=== PATIENT | male | born 1995 | race Caucasian/White ===

== ENCOUNTER 2017-06-15 03:39 | Emergency (ER) | payer BC, OTHER ==
[~2017-06-15] VITALS: Ht 195.6 cm; Wt 147.8 kg
[~2017-06-15 03:39] MED LIST: DICL75 PO; MAXA5TAB2 PO; PROP10TA6 PO
[2017-06-15 03:47] VITALS: BP 218/130; PULSE 74; RESP 18; TEMP 97.7; O2SAT 100
[2017-06-15 04:04] LABS: BILIRUBIN, URINE NEG (NEG); BLOOD, URINE MOD (NEG); GLUCOSE,URINE NEG (NEG); KETONE, URINE NEG (NEG); NITRITE,URINE NEG (NEG); URINE LEUKOCYTE ESTERASE NEG (NEG)
[2017-06-15 04:11] LABS: SQUAMOUS EPITHELIAL CELL URINE 0-5 /hpf (0-5); URINE COLOR YELLOW (YELLW/STRAW); WBC, URINE 0-2 /hpf (0-5)
[2017-06-15] MEDS ORDERED: SODIUM CHLOR 0.9% 1000 ML INJ 1,000 ML IV SCH (04:19)
[2017-06-15] MEDS ORDERED: SODIUM CHLORIDE 0.9% FLUSH 10 ML FLUSH IV FLUSH PRN (04:30)
[2017-06-15] MEDS ORDERED: KETOROLAC TROMETHAMINE 30 MG/ML (IVP) VIAL IVP ONE (04:30)
[2017-06-15 04:42] VITALS: O2SAT 98
[2017-06-15 04:44] LABS: AUTOMATED NEUTROPHIL # 7.5 TH/MM3 (1.8-7.7); BASOPHIL # 0.1 TH/MM3 (0-0.2); BASOPHIL % 1.1 % (0.0-2.0); EOSINOPHIL # 0.1 TH/MM3 (0-0.4); EOSINOPHIL % 1.3 % (0.0-4.0); HEMOGLOBIN 13.5 GM/DL (13.0-17.0); LYMPH % 19.1 % (9.0-44.0); MEAN CELL VOLUME 85.4 FL (80.0-100.0); MEAN CORPUSCULAR HEMOGLOBIN 28.1 PG (27.0-34.0); MEAN CORPUSCULAR HGB CONC 32.9 % (32.0-36.0); MEAN PLATELET VOLUME 8.3 FL (7.0-11.0); MONO % 7.4 % (0.0-8.0); MONOCYTE # 0.8 TH/MM3 (0-0.9); NEUT % 71.1 % (16.0-70.0); PLATELET COUNT 257 TH/MM3 (150-450); RED CELL DISTRIBUTION WIDTH 12.6 % (11.6-17.2); WHITE BLOOD COUNT 10.5 TH/MM3 (4.0-11.0)
--- NOTE | 2017-06-15 04:51 | PD ---
HPI Chief Complaint: Complaint Time Seen by Provider: 04:06 Travel History International Travel<30 days: No Contact w/Intl Traveler<30days: No Traveled to known affect area: No History of Present Illness HPI Patient is a 21-year-old male presents emergency department for evaluation of dysuria and right flank pain. Patient states they were in [place] today at the scene part and after today the scene part decided to drive home and try to hold his urine on his way home. He states when he got home he started having some pain as well as right flank pain. States never had symptoms like this before. He states he got to the point where was making him nauseous and vomit. No history of kidney stones, no fevers, has not tried anything prior to arrival. Denies any chest pain shortness breath dysuria, blood in the urine, diarrhea, constipation. States symptoms are severe, context as above, associated signs symptoms as above, right flank radiating down to the groin. PFSH Past Medical History Medical History: Denies Significant Hx Diminished Hearing: No Tetanus Vaccination: > 5 Years Influenza Vaccination: No Past Surgical History Surgical History: No Previous Surgery Social History Alcohol Use: No Tobacco Use: No Substance Use: No Allergies-Medications (Allergen,Severity, Reaction): Coded Allergies: penicillin G (Verified Allergy, Severe, 06/15/17) Reported Meds & Prescriptions Reported Meds & Active Scripts Active Ibuprofen 600 Mg Tab 600 Mg PO Q6H PRN Zofran (Ondansetron HCl) 4 Mg Tab 4 Mg PO Q6HR PRN [place] (Hydrocodone-Acetaminophen) 5 Mg-325 Mg Tab 1 Tab PO Q6H PRN Flomax (Tamsulosin HCl) 0.4 Mg Cap 0.4 Mg PO HS Review of Systems Except as stated in HPI: all other systems reviewed are Neg Physical Exam Narrative GENERAL: Well-developed well-nourished, no obvious distress. SKIN: Focused skin assessment warm/dry. HEAD: Atraumatic. Normocephalic. EYES: Pupils equal and round. No scleral icterus. No injection or drainage. ENT: No nasal bleeding or discharge. Mucous membranes pink and moist. NECK: Trachea midline. No JVD. CARDIOVASCULAR: Regular rate and rhythm. No murmur appreciated. RESPIRATORY: No accessory muscle use. Clear to auscultation. Breath sounds equal bilaterally. GASTROINTESTINAL: Abdomen soft, non-tender, nondistended. Hepatic and splenic margins not palpable. Mild CVA tenderness on the right, otherwise abdomen is benign. MUSCULOSKELETAL: No obvious deformities. No clubbing. No cyanosis. No edema. NEUROLOGICAL: Awake and alert. No obvious cranial nerve deficits. Motor grossly within normal limits. Normal speech. PSYCHIATRIC: Appropriate mood and affect; insight and judgment normal. Data Data Last Documented VS Vital Signs Date Time Temp Pulse Resp B/P (MAP) Pulse Ox O2 Delivery O2 Flow Rate FiO2 06/15/17 06:49 98.2 98 180/100 (126) 100 06/15/17 03:47 18 Orders Orders Urinalysis - C+S If Indicated (06/15/17 03:46) Complete Blood Count With Diff (06/15/17 04:19) Comprehensive Metabolic Panel (06/15/17 04:19) Lipase (06/15/17 04:19) Iv Access Insert/Monitor (06/15/17 04:19) Ecg Monitoring (06/15/17 04:19) Oximetry (06/15/17 04:19) Sodium Chlor 0.9% 1000 Ml Inj (Ns 1000 M (06/15/17 04:19) Sodium Chloride 0.9% Flush (Ns Flush) (06/15/17 04:30) Ketorolac Inj (Toradol Inj) (06/15/17 04:30) Ct Abd/Pel W/O Iv Contrast (06/15/17 ) Ed Discharge Order (06/15/17 06:35) Labs Laboratory Tests Test 06/15/17 03:30 06/15/17 04:30 Urine Color YELLOW Urine Turbidity CLEAR Urine pH 6.0 Urine Specific [place] 1.025 Urine Protein NEG mg/dL Urine Glucose (UA) NEG mg/dL Urine Ketones NEG mg/dL Urine Occult Blood MOD Urine Nitrite NEG Urine Bilirubin NEG Urine Leukocyte Esterase NEG Urine RBC 20-24 /hpf Urine WBC 0-2 /hpf Urine Squamous Epithelial Cells 0-5 /hpf Urine Bacteria NONE /hpf Microscopic Urinalysis Comment CULT NOT INDICATED White Blood Count 10.5 TH/MM3 Red Blood Count 4.80 MIL/MM3 Hemoglobin 13.5 GM/DL Hematocrit 41.0 % Mean Corpuscular Volume 85.4 FL Mean Corpuscular Hemoglobin 28.1 PG Mean Corpuscular Hemoglobin Concent 32.9 % Red Cell Distribution Width 12.6 % Platelet Count 257 TH/MM3 Mean Platelet Volume 8.3 FL Neutrophils (%) (Auto) 71.1 % Lymphocytes (%) (Auto) 19.1 % Monocytes (%) (Auto) 7.4 % Eosinophils (%) (Auto) 1.3 % Basophils (%) (Auto) 1.1 % Neutrophils # (Auto) 7.5 TH/MM3 Lymphocytes # (Auto) 2.0 TH/MM3 Monocytes # (Auto) 0.8 TH/MM3 Eosinophils # (Auto) 0.1 TH/MM3 Basophils # (Auto) 0.1 TH/MM3 CBC Comment DIFF FINAL Differential Comment Blood Urea Nitrogen 14 MG/DL Creatinine 1.00 MG/DL Random Glucose 157 MG/DL Total Protein 8.0 GM/DL Albumin 3.8 GM/DL Calcium Level 8.7 MG/DL Alkaline Phosphatase 75 U/L Aspartate Amino Transf (AST/SGOT) 14 U/L Alanine Aminotransferase (ALT/SGPT) 39 U/L Total Bilirubin 0.2 MG/DL Sodium Level 141 MEQ/L Potassium Level 4.2 MEQ/L Chloride Level 107 MEQ/L Carbon Dioxide Level 26.9 MEQ/L Anion Gap 7 MEQ/L Estimat Glomerular Filtration Rate 93 ML/MIN Lipase 149 U/L MDM Medical Decision Making Medical Screen Exam Complete: Yes Emergency Medical Condition: Yes Differential Diagnosis UTI, pyelonephritis, kidney stone, urinary tract infection, bladder spasms. Narrative Course Patient roomed emergency department, appears well, hypertensive and discussed need follow-up with primary care physician regarding this in the future to prevent strokes and heart attacks. Patient verbalizes agreement. Fairly classic for nephrolithiasis, discussed the patient could consider trial of passage without Scanning, he still is unsure diagnosis would like to have CAT scan anyways, discussion of radiation risks that he is willing to accept them. CAT scan does show the following results: Last 24 hours Impressions Abdomen/Pelvis CT 06/15/17 0000 Signed Impressions: Service Date/Time: Thursday, June 15, 2017 05:36 - CONCLUSION: 1. There is a 3 mm stone at the right UVJ causing hydronephrosis to the right collecting system. 2. Diffuse fatty infiltration of the liver. Herbert Medina MD Discussed symptomatic management returned ED criteria follow-up with urologist. He is stable for discharge. Diagnosis Primary Impression: Renal colic on right side Additional Impressions: Nephrolithiasis Fatty liver Referrals: Nguyễn Correa MD Additional Instructions: The liver is showing some signs of damage, recommending weight loss and avoidance of alcohol follow-up with her primary care physician. Follow-up with Dr. Correa the urologist. Med/Other Pt SpecificInfo: Prescription(s) given Scripts Ibuprofen (Ibuprofen) 600 Mg Tab 600 MG PO Q6H Y for Pain/Inflammation, #20 TAB 0 Refills Prov: Petros Dupree MD 06/15/17 Ondansetron (Zofran) 4 Mg Tab 4 MG PO Q6HR Y for NAUSEA OR VOMITING, #20 TAB 0 Refills Prov: Petros Dupree MD 06/15/17 Hydrocodone-Acetaminophen ([place]) 5 Mg-325 Mg Tab 1 TAB PO Q6H Y for PAIN, #10 TAB 0 Refills Prov: Petros Dupree MD 06/15/17 Tamsulosin (Flomax) 0.4 Mg Cap 0.4 MG PO HS for Manage Prostate Problems, #30 CAP 0 Refills Prov: Petros Dupree MD 06/15/17 Disposition: 01 DISCHARGE HOME Condition: Stable Petros Dupree MD Jun 15, 2017 04:51
[2017-06-15 04:52] LABS: CHLORIDE 107 MEQ/L (98-107); SODIUM (NA) 141 MEQ/L (136-145)
[2017-06-15 04:57] LABS: ALBUMIN 3.8 GM/DL (3.4-5.0); BICARBONATE 26.9 MEQ/L (21.0-32.0); BLOOD UREA NITROGEN 14 MG/DL (7-18); CALCIUM 8.7 MG/DL (8.5-10.1); GLUCOSE,RANDOM 157 MG/DL (74-106); LIPASE 149 U/L (73-393)
[2017-06-15 05:00] LABS: ALT (GPT) 39 U/L (12-78); AST (GOT) 14 U/L (15-37); GLOMERULAR FILTRATION RATE 93 ML/MIN (>89)
[2017-06-15 05:02] LABS: TOTAL BILIRUBIN ADULT 0.2 MG/DL (0.2-1.0)
[2017-06-15 05:03] LABS: ALKALINE PHOSPHATASE 75 U/L (45-117)
--- NOTE | 2017-06-15 06:00 | RADRPT ---
EXAM DATE/TIME: 06/15/2017 05:36 [facility] COMPARISON: No previous studies available for comparison. INDICATIONS : Back and bladder pain for 2 days ORAL CONTRAST: No oral contrast ingested. RADIATION DOSE: 27.92 CTDIvol (mGy) ; Patient body habitus MEDICAL HISTORY : None SURGICAL HISTORY : None. ENCOUNTER: Initial ACUITY: 2 days PAIN SCALE: 7/10 LOCATION: Right flank TECHNIQUE: Volumetric scanning of the abdomen and pelvis was performed. Using automated exposure control and ad justment of the mA and/or kV according to patient size, radiation dose was kept as low as reasonably achievable to obtain optimal diagnostic quality images. DICOM format image data is available electro nically for review and comparison. The lack of IV contrast limits the diagnosis for certain organ pa thology. The FINDINGS: LOWER LUNGS: The visualized lower lungs are clear. LIVER: Homogeneous density without lesion. There is fatty infiltration throughout the liver. There is no dil ation of the biliary tree. No calcified gallstones. SPLEEN: Normal size without lesion. PANCREAS: Within normal limits. KIDNEYS: There is a mild to moderate hydronephrosis of the right collecting system. There is some dilatation o f the right ureter. There is a 3 mm stone in the distal right ureter at the UVJ. The left kidney is u nremarkable. There is no left-sided hydronephrosis. No calcified renal stones are demonstrated. ADRENAL GLANDS: Within normal limits. VASCULAR: There is no aortic aneurysm. BOWEL/MESENTERY: The stomach, small bowel, and colon demonstrate no acute abnormality. There is no free intraperitone al air or fluid. ABDOMINAL WALL: Within normal limits. RETROPERITONEUM: There is no lymphadenopathy. BLADDER: No wall thickening or mass. 3 mm stone at the right UVJ. REPRODUCTIVE: Within normal limits. INGUINAL: There is no lymphadenopathy or hernia. MUSCULOSKELETAL: Within normal limits for patient age. CONCLUSION: 1. There is a 3 mm stone at the right UVJ causing hydronephrosis to the right collecting system. 2. Diffuse fatty infiltration of the liver. Herbert Medina MD on June 15, 2017 at 5:55 Board Certified Radiologist. This report was verified electronically.
[2017-06-15] MEDS ORDERED: NORC5TAB PO (06:35)
[2017-06-15] MEDS ORDERED: IBUP-232 PO (06:35)
[2017-06-15] MEDS ORDERED: ZOFR4TAB PO (06:35)
[2017-06-15] MEDS ORDERED: TAMS5CAP PO (06:35)
[2017-06-15 06:49] VITALS: BP 180/100; TEMP 98.2
== END 2017-06-15 06:51 | disposition home or self-care (01) ==
LOC: PHED 03:39
DX: N23 Unspecified renal colic (principal); N20.0 Calculus of kidney; K76.0 Fatty (change of) liver, not elsewhere classified
CPT/HCPCS: 74176; 80053; 81001; 83690; 85025; 96361; 96374; 99285; J1885; J7030